=== PATIENT | male | born 1980 | race African-American/Black ===

== ENCOUNTER → 2017-07-07 | Outpatient (CLI) | payer OTHER ==
[~2017-07-07] MED LIST: BUPIVACAINE MPF 0.5% 10 ML VIAL for KCIC. IJ ONE; CHOL500016 PO; CRESTOR10 MG PO; IOHEXOL 300 MG/ML 50 ML VIAL. INT ART ONE; LIDOCAINE 1% Multi-Dose 20 ML VIAL. ID ONE; METF500T4 PO; methylPREDNISolone ACETATE 40 MG/ML VIAL. INT ART ONE
--- NOTE | 2017-07-07 12:15 | KCIC ---
[Right] hip injection History: [Right] hip pain Findings: Patient was informed of the risks to include pain, infection, bleeding, nerve or blood vessel injury, and allergic reaction. All questions were answered. The patient signed a written consent form for a [right] hip injection. Patient was placed in a supine position. External skin site overlying the [ ] hip was prepped and draped in the usual sterile fashion. Betadine was utilized for cleansing solution. 1% lidocaine was utilized for local anesthesia to the depth of the [right] femoral neck. 22-gauge spinal needle was advanced to the margin of the [right] femoral neck. Solution containing 2 mL Depo-Medrol, 4 cc lidocaine, 4 cc Omnipaque 300, and 4 cc Marcaine were injected. Injection demonstrated intra-articular position of the needle tip. Needle was removed. There were no immediate complications. Bandage was applied at site of puncture. Fluoroscopy time: [33] seconds, [1] fluoroscopic image. Impression: 1. Technically successful right hip injection without immediate complication as stated. Electronically signed by: Rubio Ibarra MD (07/07/2017 12:11 PM) [id number]
== END | disposition home or self-care (01) ==
LOC: KCIC 10:51
PROVIDERS: ATTEND Orthopaedic Surgery Sports Medicine
DX: M25.551 Pain in right hip (principal)
CPT/HCPCS: 20610; 77002; J1030; Q9967

== ENCOUNTER → 2018-01-29 | Outpatient (CLI) | payer BC | END | disposition home or self-care (01) | LOC: ECHO 11:13 | DX: I51.7 Cardiomegaly (principal); R01.1 Cardiac murmur, unspecified | CPT/HCPCS: 93306 ==